=== PATIENT | male | born 1985 | race African-American/Black ===

== ENCOUNTER 2018-08-28 17:29 | Observation (INO) | payer OTHER ==
[~2018-08-28] VITALS: Ht 180.3 cm; Wt 138.7 kg
[2018-08-28 17:30] VITALS: BP 158/88
[2018-08-28] MEDS ORDERED: ERGOCALCIF50000 UNIT PO (17:46)
[2018-08-28] MEDS ORDERED: LIPITOR 20 MG T20 M1 PO (17:47)
[2018-08-28] MEDS ORDERED: AMLODIPINE BESY10 MG PO (17:47)
[2018-08-28] MEDS ORDERED: NORCO 5-325 TA1 EACH PO (17:47)
[2018-08-28] MEDS ORDERED: FUROSEMIDE 40 M40 M1 PO (17:48)
[2018-08-28] MEDS ORDERED: TRESIBA FL200 UNIT/1 SUBQ (17:49)
[2018-08-28] MEDS ORDERED: PRINIVIL20 MG PO (17:50)
[2018-08-28] MEDS ORDERED: HUMALOG100 UNIT/1 SUBQ (17:51)
[2018-08-28] MEDS ORDERED: NOVOLOG100 UNIT/1 SUBQ (17:51)
[2018-08-28 19:39] LABS: ABSOLUTE BASOPHILS 0.1 thou/uL (0.0-0.2); ABSOLUTE EOSINOPHILS 0.1 thou/uL (0.0-0.7); ABSOLUTE LYMPHOCYTES 2.1 thou/uL (0.8-5.3); ABSOLUTE MONOCYTES 0.8 thou/uL (0.0-1.2); ABSOLUTE NEUTROPHILS 10.6 thou/uL (1.6-8.1); BASOPHILS 0.4 %; EOSINOPHILS 0.6 %; HEMATOCRIT 37.3 % (42.0-52.0); HEMOGLOBIN 12.1 gm/dL (14.0-18.0); LYMPHOCYTES 15.1 %; MCH 26.7 pg (26.0-34.0); MCHC 32.5 g/dL (28.0-37.0); MCV 82.2 fL (80.0-100.0); MONOCYTES 5.7 %; MPV 9.7 fl. (7.2-11.1); NUCLEATED RBCS 0 /100WBC; PLATELET COUNT* 217 thou/uL (150-400); POLYS 78.2 %; RBC 4.53 mil/uL (4.50-6.00); RDW-CV 13.9 % (10.5-14.5); WBC 13.6 thou/uL (4.0-11.0)
[2018-08-28 19:50] LABS: ANION GAP 7 mmol/L (7-16); BUN 20 mg/dL (7-18); CHLORIDE 99 mmol/L (98-107); CO2 30 mmol/L (21-32); CREATININE 2.8 mg/dL (0.6-1.3); GLUCOSE 111 mg/dL (70-99); POTASSIUM 4.1 mmol/L (3.5-5.1); SODIUM 136 mmol/L (136-145)
[2018-08-28 19:54] LABS: APTT 27.4 Seconds (25.0-31.3)
[2018-08-28 19:57] LABS: ALBUMIN 3.3 g/dL (3.4-5.0); ALKALINE PHOSPHATASE 89 U/L (46-116); LIPASE 172 U/L (73-393); MAGNESIUM 1.8 mg/dL (1.8-2.4); SGOT 20 U/L (15-37); SGPT 35 U/L (30-65); TOTAL BILIRUBIN 0.3 mg/dL (<0.1-1.0); TOTAL PROTEIN 8.4 g/dL (6.4-8.2); TROPONIN-I LEVEL <0.06 ng/mL (<0.06)
[2018-08-29] VITALS (7 sets, daily range): BP systolic 126–142; BP diastolic 66–80
--- NOTE | 2018-08-29 15:29 | 2DMMODE ---
[place] [address] 2 D/M-MODE ECHOCARDIOGRAM Name: CAMILA HARDIN Room: [address] IN [facility]#: [id number] Admission: 08/28/18 Attend Phys: Joaquin Ramírez Discharge: Date of : 83 Date of Service: 08/29/18 1529 Report #: [id number] THIS REPORT FOR: //name// APPROVED REPORT Study performed: 08/29/2018 10:32:09 EXAM: Comprehensive 2D, Doppler, and color-flow Echocardiogram Patient Location: In-Patient Room #: 208 Status: routine BSA: 2.46 HR: 91 bpm BP: 142/80 mmHg Rhythm: NSR Other Information Study Quality: Good Indications Chest Pain 2D Dimensions IVSd: 17.93 (7-11mm) LVOT Diam: 22.70 (18-24mm) LVDd: 43.11 mm PWd: 14.79 (7-11mm) Ascending Ao: 29.47 (22-36mm) LVDs: 25.42 (25-40mm) Aortic Root: 33.19 mm Volumes Left Atrial Volume (Systole) LA ESV Index: 16.70 mL/m2 Aortic Valve AoV Peak Gary.: 1.25 m/s AO Peak Gr.: 6.28 mmHg LVOT Max P.35 mmHg AO Mean Gr.: 4.03 mmHg LVOT Mean P.14 mmHg LVOT Max V: 1.04 m/s AO V2 VTI: 18.14 cm LVOT Mean V: 0.67 m/s [place] (VTI): 3.62 cm2 LVOT V1 VTI: 16.22 cm Mitral Valve E/A Ratio: 1.13 MV Decel. Time: 325.29 ms MV E Max Gary.: 0.57 m/[place] [address] 2 D/M-MODE ECHOCARDIOGRAM Name: LASHAWNCAMILA Room: [address] IN ..#: [id number] Admission: 08/28/18 Attend Phys: Joaquin Ramírez Discharge: Date of : 83 Date of Service: 08/29/18 1529 Report #: [id number] MV PHT: 94.34 ms MVA (PHT): 2.33 cm2 TDI E/Lateral E': 6.33 E/Medial E': 6.33 Medial E' Gary.: 0.09 m/s Lateral E' Gary.: 0.09 m/s Pulmonary Valve PV Peak Gary.: 1.02 m/s PV Peak Gr.: 4.17 mmHg Left Ventricle The left ventricle is normal size. There is normal LV segmental wall motion. Moderate concentric left ventricular hypertrophy. Left ventricular systolic function is normal. The left ventricular ejection fraction is within the normal range. LVEF is 60-65%. Transmitral Doppler flow pattern suggests impaired LV relaxation. Right Ventricle The right ventricle is normal size. The right ventricular systolic function is normal. Atria The left atrium size is normal. The right atrium size is normal. Aortic Valve The aortic valve is normal in structure. No aortic regurgitation is present. There is no aortic valvular stenosis. Mitral Valve The mitral valve is normal in structure. There is no mitral valve regurgitation noted. No evidence of mitral valve stenosis. Tricuspid Valve The tricuspid valve is normal in structure. Unable to assess PA pressure. Trace tricuspid regurgitation. Pulmonic Valve The pulmonary valve is normal in structure. There is no pulmonic valvular regurgitation. Great Vessels The aortic root is normal in size. IVC is normal in size and collapses >50% [place] [address] 2 D/M-MODE ECHOCARDIOGRAM Name: CAMILA HARDIN Room: [address] IN [facility]#: [id number] Admission: 08/28/18 Attend Phys: Joaquin Ramírez Discharge: Date of : 83 Date of Service: 08/29/18 1529 Report #: [id number] Pericardium There is no pericardial effusion. <Conclusion> The left ventricle is normal size. Moderate concentric left ventricular hypertrophy. Left ventricular systolic function is normal. The left ventricular ejection fraction is within the normal range. LVEF is 60-65%. Transmitral Doppler flow pattern suggests impaired LV relaxation. IVC is normal in size and collapses >50% with inspiration. <ELECTRONICALLY SIGNED> By: Morris Warren MD, FACC 08/29/18 1529 1529 1529 Morris Warren MD, FACC /INF
--- NOTE | 2018-08-29 16:39 | EKG ---
[place] [address] ELECTROCARDIOGRAM REPORT Name: LASHAWNCAMILA Room: [address] M.R.#: [id number] Admission: 08/28/18 Attend Phys: Caroline Tian Discharge: Date of : 83 Report #: [id number] THIS REPORT FOR: //name// [facility] ED Test Date: 2018-08-28 Test Time: 17:35:34 Pat Name: CAMILA HARDIN Department: Room: [facility] Gender: Farm Tractor Operator: Yrn RAZO : 1985 Requested By: Seamus Dunham Order Number: [id number] MD: Alli Mcneal Measurements Intervals Heber Rate: 102 P: 36 NH: 145 QRS: 31 QRSD: 80 T: -13 QT: 333 QTc: 434 Interpretive Statements Sinus tachycardia Probable left atrial enlargement Borderline T wave abnormalities No previous ECG available for comparison Electronically Signed On 08-29-2018 16:38:54 CDT by Alli Mcneal [email or web address] <ELECTRONICALLY SIGNED> By: Alli Mcneal MD, [facility] 08/29/18 1638 1735 1735 Alli Mcneal MD, FACC /EPI
[2018-08-30] VITALS: BP 145/84
[2018-08-30 04:00] VITALS: BP 122/75
[2018-08-30 07:30] VITALS: BP 149/90
[2018-08-30 09:00] VITALS: BP 149/90
--- NOTE | 2018-08-30 10:37 | EKG ---
[place] [address] ELECTROCARDIOGRAM REPORT Name: LASHAWNCAMILA Room: [address] M.R.#: [id number] Admission: 08/28/18 Attend Phys: Caroline Tian Discharge: Date of : 83 Report #: [id number] THIS REPORT FOR: //name// [facility] Test Date: 2018-08-29 Test Time: 16:15:50 Pat Name: CAMILA HARDIN Department: Room: [address] Gender: M Sterilization Specialist: : 1985 Requested By: Joaquin Ramírez Order Number: [id number] Dominic MD: Alli Mcneal Measurements Intervals Star Rate: 90 P: 52 MT: 144 QRS: 40 QRSD: 72 T: -2 QT: 362 QTc: 443 Interpretive Statements Sinus rhythm Borderline T abnormalities, inferior leads Compared to ECG 08/28/2018 17:35:34 Sinus tachycardia no longer present T-wave abnormality still present Electronically Signed On 08-30-2018 10:37:32 CDT by Alli Mcneal [email or web address] <ELECTRONICALLY SIGNED> By: Alli Mcneal MD, FACC 08/30/18 [facility] 1615 1615 Alli Mcneal MD, [facility] /EPI
--- NOTE | 2018-08-30 11:58 | EXE ---
[place] [address] STRESS ECHOCARDIOGRAM Name: CAMILA HARDIN Room: [address] MNavinRNavin#: [id number] Admission: 08/28/18 Attend Phys: Joaquin Ramírez Discharge: Date of : 83 Date of Service: 08/30/18 1157 Report #: [id number] THIS REPORT FOR: //name// APPROVED REPORT Study performed: 08/30/2018 10:05:45 Exam: Stress Echocardiogram Indication: Chest pain , Palpitations Patient Location: In-Patient Stress Nurse: Kianna Douglass RN Room #: [facility] Supervising Physician: Alli Mcneal MD Status: routine Ht: 5 ft 11 in HR: 86 bpm BP: 143/89 mmHg Rhythm: Atrial Fibrillation Medical History Cardiac Risk Factors: Hyperlipidemia, HTN, DM, FHX of CAD Procedure The patient underwent an Exercise Stress Test using the Davion Protocol. Blood pressure, heart rate, and EKG were monitored. An Echocardiogram was performed by calibration technician in four stages in quad fashion. At peak stress, four selected images were obtained and placed side by side with resting images for comparison. Stress Test Details Stress Test: Exercise stress testing was performed using a Davion protocol. HR Resting HR: 86 bpm Max Heart Rate (APMHR): 187 bpm Max HR Achieved: 135 bpm Target HR (85% APMHR): 158 bpm % of APMHR: 72 Recovery HR: 94 bpm HR response to stress: Normal HR response to stress, patient though did not reach target heart rate based on age. Was unable to finish due to SOA and Chest pain 06/04 BP Resting BP: 143/89 mmHg Max BP: 186/[place] [address] STRESS ECHOCARDIOGRAM Name: CAMILA HARDIN Room: [address]#: [id number] Admission: 08/28/18 Attend Phys: Joaqiun Ramírez Discharge: Date of : 83 Date of Service: 08/30/18 1157 Report #: [id number] Recovery BP: 138/79 mmHg ECG Resting ECG: Sinus Rhythm Stress ECG: no ischemic st-t changes noted Clinical Reason for Termination: Atypical chest pain Stress Symptoms: Chest pain Exercise duration: 4 min 16 sec Highest Stage Achieved: Stage 2: 2.5 mph at 12% grade. Exercise capacity: 6.14 METs Pre-Stress Echo The resting Echocardiogram showed normal left ventricular contractility with an estimated Ejection Fraction of about 55-60%. Normal wall motion in all segments on baseline images. Post-Stress Echo Post Images were not completed. Patient did not reach target heart rate and post stress imaging was not performed Conclusion Clinical Response: Indeterminant Exercise Capacity: Below Average Stress ECG Response: Non-ischemic no post exercise imaging was performed in the context of decreased functional capacity with markedly blunted peak heart rate response to exercise indeterminant trest by virtue of decreased workload and blunted peak heart rate response chest pain was atypical for ischemia Other Information Study Quality: Good <Conclusion> no post exercise imaging was performed in the context of decreased functional capacity with markedly blunted peak heart rate response to exercise indeterminant trest by virtue of decreased workload [place] [address] STRESS ECHOCARDIOGRAM Name: LASHAWNCAMILA Room: [address] M.R.#: [id number] Admission: 08/28/18 Attend Phys: Joaquin Ramírez Discharge: Date of : 83 Date of Service: 08/30/181156 Report #: [id number] heart rate response chest pain was atypical for ischemia <ELECTRONICALLY SIGNED> By: Alli Mcneal MD, FACC 08/30/18 1157 1157 56 Alli Mcneal MD, FACC /INF
[2018-08-30] MEDS ORDERED: CEFDINIR300 MG PO (12:00)
[2018-08-30] MEDS ORDERED: AZITHROMYCIN 2250 MG PO (12:01)
[2018-08-30 12:18] LABS: ALBUMIN 2.8 g/dL (3.4-5.0); CALCIUM 8.9 mg/dL (8.5-10.1); PHOSPHORUS* 5.3 mg/dL (2.5-4.9); POTASSIUM 4.8 mmol/L (3.5-5.1); TOTAL BILIRUBIN 0.2 mg/dL (<0.1-1.0); TOTAL PROTEIN 7.2 g/dL (6.4-8.2)
[2018-08-30 12:23] LABS: CREATININE 8.1 mg/dL (0.6-1.3)
--- NOTE | 2018-09-01 08:35 | CON ---
[address] [address] CONSULTATION Name: CAMILA HARDIN Room: [address] Cindy Porter#: [id number] Admission: 08/28/18 Attend Phys: Caroline Tian Discharge: 08/30/18 Date of : 83 Report #: [id number] THIS REPORT FOR: //name// CC: MARIA DOLORES BAL Physician staff Joaquin Ramírez DATE OF SERVICE: 08/29/2018 CONSULTING PHYSICIANS: Dr. Ramírez, Dr. Louise. REASON FOR NEPHROLOGY CONSULTATION: End-stage renal disease for hemodialysis needs. CHIEF COMPLAINT: Chest pain during dialysis. HISTORY OF PRESENT ILLNESS: This is a very pleasant 32-year-old -[place]omin[place] male who has past medical history of diabetes and hypertension, who was started on dialysis about 2-1/2 weeks ago, has end-stage renal disease, has right IJ tunneled dialysis catheter, goes to [facility] under the care of Dr. Coley, who came in yesterday because of chest pain during dialysis. Forty three minutes were left into his 4-hour treatment of dialysis, when his system clotted and when the nurses were taking him off, the venous line cap came off and patient as well as the patient's nurses heard air sucking into the venous port. They immediately aspirated venous port and aspirated blood out and then could heparinize both the venous and the arterial lines and cap them. The patient had chest pain at the moment when the air noise was heard. He also felt a little shortness of breath at that time. He immediately came to the ER. His troponins were found to be negative. He also had a CTA of his chest, which did not show any evidence of pulmonary or air embolism. His troponins were negative. He is currently feeling fine. He also has a right arm radiocephalic fistula, which was done in . ALLERGIES: Reviewed. REVIEW OF SYSTEMS: As mentioned in history of present illness, otherwise negative. HOME MEDICATIONS: Include hydrocodone, atorvastatin, amlodipine, furosemide, insulin, Tarceva, lisinopril, insulin lispro and insulin aspart. PAST MEDICAL AND SURGICAL HISTORY: Includes end-stage renal disease, on hemodialysis every Sunday, Sunday, Sunday; cardiomegaly; diabetes type 2; hypertension; left shoulder surgery; gallbladder removal; fistula in [place] [address] CONSULTATION Name: CAMILA HARDIN Room: [address] German#: [id number] Admission: 08/28/18 Attend Phys: Caroline Tian Discharge: 08/30/18 Date of : 83 Report #: [id number] FAMILY HISTORY: Heart disease, cancer, and diabetes. SOCIAL HISTORY: He does not smoke, drink alcohol or use recreational drugs. PHYSICAL EXAMINATION: VITAL SIGNS: Blood pressure is 142/80, respiratory rate is 20, pulse rate is 97, temperature 36.9, pulse ox is 98% on room air. GENERAL: He is awake, alert, oriented x 3. There is no acute distress. HEAD, EYES, EARS, NOSE AND THROAT: Mucous membranes are moist. NECK: There is no JVD. LUNGS: Clear to auscultation bilaterally. No crackles or wheezing. CARDIOVASCULAR: S1 and S2 normal. No murmurs heard. ABDOMEN: Soft, nondistended, nontender and bowel sounds are present. Abdomen is obese. EXTREMITIES: There is no lower extremity edema. Right extremity radiocephalic fistula has a good bruit and thrill and his main dialysis access is a right IJ tunneled dialysis catheter site, which is looking good and there is no erythema or discharge on the site. NEUROLOGICAL: Gross neurological function is intact. PSYCHIATRIC: Mood and affect seem to be normal. LABORATORY DATA: Hemoglobin is 12.1, WBC is 13.6. Potassium was 4.1, sodium was 136 and other labs are reviewed. IMAGING: CTA of his chest and x-ray were reviewed. ASSESSMENT: 1. End-stage renal disease, on hemodialysis every Sunday, Sunday, Sunday; last dialysis was yesterday. 2. Possibility of air embolism yesterday during dialysis. CTA did not show any evidence of air embolism. The patient is asymptomatic. His troponins are negative. 3. Hypertension. Blood pressure seems to be controlled. 4. Diabetes type 2, primary team is managing. PLAN: 1. There is no acute need for dialysis today since the patient was dialyzed yesterday and his electrolytes are looking good and he is looking euvolemic. 2. If he still stays in the hospital tomorrow, we will dialyze him. Otherwise, he is okay to discharge from renal standpoint. [address] [address] CONSULTATION Name: CAMILA HARDIN Room: [address] [place] Porter#: [id number] Admission: 08/28/18 Attend Phys: Caroline Tian Discharge: 08/30/18 Date of : 83 Report #: [id number] Thank you for the consultation. We will continue to follow along with you. Discussed the plan with the patient as well as the patient's nurse. <ELECTRONICALLY SIGNED> By: Alicia Hernandez MD 09/01/18 0835 0924 [id number] Hernandez MD /nt
== END 2018-08-30 16:53 | disposition home or self-care (01) ==
LOC: M.ERS 17:29 → M.2W 19:10 → M.TBA-ER 19:10 → M.2W 20:07
PROVIDERS: Emergency Medicine Emergency Medical Services; ADMIT Internal Medicine
DX: T80.0XXA Air embolism following infusion, transfusion and therapeutic injection, initial encounter (principal); I12.0 Hypertensive chronic kidney disease with stage 5 chronic kidney disease or end stage renal disease; E11.22 Type 2 diabetes mellitus with diabetic chronic kidney disease; N18.6 End stage renal disease; D50.0 Iron deficiency anemia secondary to blood loss (chronic); E66.9 Obesity, unspecified; R00.2 Palpitations; R09.02 Hypoxemia; R07.9 Chest pain, unspecified; Y92.239 Unspecified place in hospital as the place of occurrence of the external cause; Z99.2 Dependence on renal dialysis; Z79.4 Long term (current) use of insulin; Z98.890 Other specified postprocedural states